=== PATIENT | male | born 1960 | race Caucasian/White ===

== ENCOUNTER 2017-08-24 23:07 | Emergency (ER) | payer BC ==
[~2017-08-24] VITALS: Ht 185.4 cm; Wt 79.4 kg
[2017-08-24 23:21] VITALS: BP_SYST 136
[2017-08-25 00:20] VITALS: BP_SYST 136
== END 2017-08-25 00:20 | disposition home or self-care (01) ==
LOC: SED 23:07
DX: S86.012A Strain of left Achilles tendon, initial encounter (principal); X58.XXXA Exposure to other specified factors, initial encounter; Y93.67 Activity, basketball; Y92.320 Baseball field as the place of occurrence of the external cause; Y99.8 Other external cause status
CPT/HCPCS: 99282

== ENCOUNTER 2022-10-18 12:22 | Emergency (ER) | payer BC ==
[~2022-10-18] VITALS: Ht 185.4 cm; Wt 81.6 kg
[2022-10-18 12:29] VITALS: BP_SYST 137
[2022-10-18 13:16] VITALS: BP_SYST 135
== END 2022-10-18 13:15 | disposition home or self-care (01) ==
LOC: SED 12:22
DX: S60.021A Contusion of right index finger without damage to nail, initial encounter (principal); Z79.899 Other long term (current) drug therapy; W23.0XXA Caught, crushed, jammed, or pinched between moving objects, initial encounter; Y93.67 Activity, basketball; Y92.89 Other specified places as the place of occurrence of the external cause; Y99.8 Other external cause status
CPT/HCPCS: 73140-TC; 99283